=== PATIENT | female | born 1980 | race Caucasian/White ===

== ENCOUNTER 2016-12-12 10:05 | Emergency (ER) | payer SELFPAY ==
[~2016-12-12] VITALS: Ht 177.8 cm; Wt 90.9 kg
[2016-12-12 10:05] VITALS: BP 132/77
[2016-12-12] MEDS ORDERED: WELLTAB40 PO (10:19)
[2016-12-12] MEDS ORDERED: FLUORESCEIN OPHTH 1 MG STRIP OS ONE (10:45)
[2016-12-12] MEDS ORDERED: NEO/1SUS OS (10:57)
== END 2016-12-12 11:09 | disposition home or self-care (01) ==
LOC: M ED 10:05
DX: S05.02XA Injury of conjunctiva and corneal abrasion without foreign body, left eye, initial encounter (principal); W26.2XXA Contact with edge of stiff paper, initial encounter; Y92.89 Other specified places as the place of occurrence of the external cause; Y93.89 Activity, other specified; Y99.8 Other external cause status; Z79.899 Other long term (current) drug therapy; Z88.5 Allergy status to narcotic agent; Z87.891 Personal history of nicotine dependence